=== PATIENT | male | born 1960 | race Caucasian/White ===

== ENCOUNTER 2023-10-09 10:51 | Outpatient (AMB) | payer BC, SELFPAY ==
--- NOTE | 2023-10-09 10:52 | MHC.OFFVIS ---
Vital Signs 10/09/23 10:54 Height 5 ft 9 in Weight 225 lb BMI 33.2 BP 136/80 Blood Pressure Location Lt brachial Position Sitting Respiration 14 Pulse 88 Pulse Source Pulse Oximeter Pulse Oximetry (%) 96 Oxygen Delivery Method Room Air Intake Visit Reasons: Lower back pain - want to discuss trigger point Allergies No Known Allergies Allergy (Verified 10/09/23 10:56) Medication List - Last Reconciled 10/09/23 by Patria Guevara LPN allopurinol 100 mg PO DAILY amlodipine 10 mg PO DAILY cholecalciferol (vitamin D3) 25 mcg PO DAILY diclofenac sodium 75 mg PO BID empagliflozin (Jardiance) 10 mg PO DAILY fexofenadine 180 mg PO DAILY losartan 100 mg PO DAILY metformin 1,000 mg PO BID rosuvastatin 10 mg PO BEDTIME tramadol 50 mg PO Q6H PRN HPI HPI Lower back pain - want to discuss trigger point: Details: 63-year-old male who presents today to the office for a TPI for low back pain He reports muscle spasms along the right lower back and left buttocks area going down to left leg since August 15, 2023. The pain is rated at 5-8/10 in intensity. It is constant in nature and associated with some tingling and stinging sensations. She reports intermittent right leg radiculopathy with prolonged sitting. He had massage therapy in [place], which did not provide any relief. He is unable to sleep at night due to pain. He was in [facility], when this occurred. He had an x-ray, which showed degenerative arthritis. He was treated with trigger point injection with steroid and lidocaine and oral medications, including tizanidine, diclofenac, and tramadol. He is taking Tylenol as needed and tramadol as needed. He will start physical therapy in late October. He requested a refill on diclofenac and tramadol. Review of Systems Const All systems reviewed & are unremarkable except as noted in HPI and below Physical Exam Vital Signs: Last Vital Signs Pulse 88 10/09/23 10:54 Resp 14 10/09/23 10:54 BP 136/80 10/09/23 10:54 Pulse Ox 96 10/09/23 10:54 Oxygen Delivery Method Room Air 10/09/23 10:54 BMI result Body Mass Index 33.2 General: Appears afebrile. Alert and oriented. Mood and affect appropriate. Follows and participates in conversation appropriately. Respiratory effort is unlabored. Able to transition from sit to stand unassisted. Ambulates with bilaterally normal heel strike and toe off. Results Reviewed Results Reviewed: Review of plain films shows degeneration of the L5-S1 intervertebral disc. Assessment & Plan Assessment & Plan (1) Lumbar radiculopathy: Code(s): M54.16 - Radiculopathy, lumbar region Category: Medical Plan He is already scheduled for physical therapy. I advised him to follow up in 4-6 weeks. I advised him to continue home exercises. I recommended swimming, inversion table exercises, core strengthening, and planks to lift the weight off the spine. I ordered an MRI scan of the lumbar spine for further evaluation of his L5-S1 disc degeneration and lumbar radiculopathy. I provided a one-time refill for Tramadol for interval pain management. Scribed for Dr. Trimble by John Knight, medical lab tech instructor, on 10/09/2023. I, Dr. Trimble, have personally reviewed and agree with the information entered by the scribe. Medications: New tramadol 50 mg PO DAILY 30 tabs 0RF Coding Level of Care Code New Pt Level 4 (50502) Diagnoses Lumbar radiculopathy M54.16
[2023-10-09 10:54] VITALS: BP 136/80; PULSE 88; RESP 14; O2SAT 96; BMI 33.2
== END 2023-10-09 11:52 | disposition home or self-care (01) ==
LOC: HO.PMC 10:51
PROVIDERS: PCP Physician Assistant; Visit Provider Internal Medicine
DX: M54.16 Radiculopathy, lumbar region (principal)
CPT/HCPCS: 99204

== ENCOUNTER → 2023-10-09 10:51 | Outpatient (BNVA) | payer BC, SELFPAY | PROVIDERS: PCP Physician Assistant; Visit Provider Internal Medicine ==

== ENCOUNTER 2023-11-13 11:15 | Outpatient (AMB) | payer BC, SELFPAY ==
[2023-11-13 11:20] VITALS: BP 150/98; PULSE 89; RESP 14; O2SAT 96; BMI 33.2
--- NOTE | 2023-11-13 11:20 | A.OFFVIS_ITS ---
Vital Signs 11/13/23 11:20 Height 5 ft 9 in Weight 225 lb BMI 33.2 BP 150/98 H Blood Pressure Location Lt brachial Position Supine Respiration 14 Pulse 89 Pulse Source Pulse Oximeter Pulse Oximetry (%) 96 Oxygen Delivery Method Room Air Intake Visit Reasons: PINCHED NERVE Allergies No Known Allergies Allergy (Verified 11/13/23 11:21) Medication List - Last Reconciled 11/13/23 by Patria Guevara LPN allopurinol 100 mg PO DAILY amlodipine 10 mg PO DAILY cholecalciferol (vitamin D3) 25 mcg PO DAILY diclofenac sodium 75 mg PO BID empagliflozin (Jardiance) 10 mg PO DAILY fexofenadine 180 mg PO DAILY losartan 100 mg PO DAILY metformin 1,000 mg PO BID rosuvastatin 10 mg PO BEDTIME tramadol 50 mg PO DAILY tramadol 50 mg PO Q6H PRN HPI HPI PINCHED NERVE: Details: 63-year-old male who presents today to the office for a pinched nerve. He visited for physical therapy and did some exercises and stretching, which worsened his pain during the initial sessions. He had an MRI scan on 10/12/2023. The pain is localized more on the right side. He states that his pain starts aggravating after 90 seconds of standing. He also reports pins and needle se nsations in his right leg. He states that his pain symptom has improved for the past three days. He is able to take a shower this morning without pain. He received a prescription of gabapentin from a primary care physician for pain management. He is also taking diclofenac. Review of Systems Const All systems reviewed & are unremarkable except as noted in HPI and below Physical Exam Vital Signs: Last Vital Signs Pulse 89 11/13/23 11:20 Resp 14 11/13/23 11:20 BP 150/98 H 11/13/23 11:20 Pulse Ox 96 11/13/23 11:20 Oxygen Delivery Method Room Air 11/13/23 11:20 BMI result Body Mass Index 33.2 General: Appears afebrile. Alert and oriented. Mood and affect appropriate. Follows and participates in conversation appropriately. Respiratory effort is unlabored. Able to transition from sit to stand unassisted. Ambulates with bilaterally normal heel strike and toe off. Results Reviewed Results Reviewed: PROCEDURE: MR SPINE LUMBAR without CONTRAST INDICATION: Right low back pain, right buttock and RLE pain since 08/16/23. TECHNIQUE: Unenhanced multiplanar, multisequence MR imaging of the lumbar spine. COMPARISON: None available. FINDINGS: Normal lumbar alignment is demonstrated. Vertebral heights are well maintained. Bone marrow signal is within normal limits, and no suspicious osseous lesion is identified. Conus medullaris is unremarkable. Paraspinal soft tissues and visualized portions of the abdomen and pelvis are unremarkable. At L1-2 there is no significant disc herniation or protrusion. No central canal or neural foraminal stenosis is demonstrated. At L2-3 there is no significant disc herniation or protrusion. No central canal or neural foraminal stenosis is demonstrated. At L3-4 there is no significant disc herniation or protrusion. No central canal or neural foraminal stenosis is demonstrated. At L4-5 concentric disc bulge with poco-bq-izzxqqwx canal narrowing, and moderate bilateral foraminal narrowing, greater on the left. There is facet arthropathy with fluid in the facet joints. At L5-S1 concentric disc bulge with mybk-le-jbarjtrc canal narrowing with at least moderate bilateral foraminal narrowing. IMPRESSION: 1. Transitional anatomy with a complete disc beneath the first sacral vertebrae. Comparison with plain film studies is suggested, to verify lumbar levels, prior to any intervention. There is wsyz-kh-adjhodcg multilevel degenerative disc disease with loss of disc height and disc desiccation seen diffusely throughout the lumbar spine. 2. Vertebral heights are preserved. No ariane malalignments. 3. No high-grade or limiting canal stenosis or disc herniation. 4. At L4-5 concentric disc bulge and broad-based central disc protrusion with aias-gt-vutnvqjj canal narrowing, and moderate bilateral foraminal narrowing, greater on the left. There is facet arthropathy with fluid in the facet joints. 5. At L5-S1 concentric disc bulge with wyao-qp-jxkfwpuc canal narrowing with at least moderate bilateral foraminal narrowing. 6. At remaining levels, canal and foraminal narrowing are mild/mpai-vn-xpgzcvkh. 7. No STIR signal abnormality to suggest bone marrow edema, soft tissue or ligamentous injury. Assessment & Plan Assessment & Plan (1) Lumbar radiculopathy: Code(s): M54.16 - Radiculopathy, lumbar region Category: Medical Plan We will schedule him for right L4-5 interlaminar epidural steroid injection on 11/16/23. Discussed the risks and benefits of the procedure with the patient in detail. All questions were answered. The patient is on board with the plan. Justification for interventional therapy: ? Patient with average pain > 6/10 ? Patient has exhausted conservative therapy ? Patient unable to tolerate physical therapy due to pain . Patient has a good understanding of their pain condition and has appropriate mental and social support Patient is status post IM ketorolac injection in the right gluteus gwen. Patient tolerated procedure well and was discharged home in stable condition with discharge instructions.? All questions were answered. Advised some gentle stretching and weightless exercises at home. Continue to take gabapentin 300 mg at bedtime and tramadol P.R.N for pain management. Advised to hold balcofen medication. Scribed for Dr. Trimble by John Knight, medical equipment technician, on 11/13/2023. I, Dr. Trimble, have personally reviewed and agree with the information entered by the scribe. Medications: New ketorolac maximum total duration of 5 days from all oral, intranasal, or parenteral formulations 30 mg IM Q6-8H PRN 2 mL 0RF pain Coding Level of Care Code Est Pt Level 4 (54132) Diagnoses Lumbar radiculopathy M54.16
== END 2023-11-13 12:47 | disposition home or self-care (01) ==
LOC: HO.PMC 11:15
PROVIDERS: PCP Physician Assistant; Visit Provider Internal Medicine
DX: M54.16 Radiculopathy, lumbar region (principal)
CPT/HCPCS: 99214

== ENCOUNTER → 2023-11-13 11:15 | Outpatient (BNVA) | payer BC, SELFPAY | PROVIDERS: PCP Physician Assistant; Visit Provider Internal Medicine ==

== ENCOUNTER 2023-11-16 06:08 | Outpatient (REF) | payer BC, SELFPAY ==
--- NOTE | ~2023-11-16 | FL_ITS ---
EXAMINATION: XR FLUOROSCOPY WITH IMAGES CLINICAL INFORMATION: Lumbar epidural injection; lumbar radiculopathy. COMPARISON: None available. TECHNIQUE: Fluoroscopy provided to: Fluoroscopy time: 0.3 minutes DAP: 0.0481 mGycm2 Images: 2 FINDINGS: Coned-down spot PA and lateral lumbar images demonstrate right translaminar epidural injection of a lumbar level; level not apparent on these coned images. Subsequent contrast injection into the dorsal epidural space. FL/FL guidance in treatment room IMPRESSION: Fluoroscopic guidance. Please refer to the full operative report for details. Electronically signed by: Carlos Alberto Wood MD 01/11/2024 09:58 AM EDT
== END 2023-11-16 06:09 | disposition home or self-care (01) ==
LOC: CF 06:08
PROVIDERS: Visit Provider Internal Medicine
DX: M54.16 Radiculopathy, lumbar region (principal)
CPT/HCPCS: 62323; J3301; Q9967

== ENCOUNTER 2023-11-16 10:18 | Outpatient (AMB) | payer BC, SELFPAY ==
[2023-11-16 10:20] VITALS: BP 158/85; PULSE 74; RESP 18; O2SAT 96
[2023-11-16 11:00] VITALS: BP 111/69; PULSE 64; RESP 19; O2SAT 96
--- NOTE | 2023-11-16 11:01 | MHC.OFFVIS ---
Vital Signs 11/16/23 10:20 11/16/23 11:00 BP 158/85 H 111/69 Blood Pressure Location Rt brachial Rt brachial Position Sitting Sitting Respiration 18 19 Pulse 74 64 Pulse Source Pulse Oximeter Pulse Oximeter Pulse Oximetry (%) 96 96 Oxygen Delivery Method Room Air Room Air Comment Pre-op Post-op Intake Visit Reasons: Right L4-L5 parasagittal interlaminar JOSE Allergies No Known Allergies Allergy (Verified 11/13/23 11:21) HPI HPI Right L4-L5 parasagittal interlaminar JOSE: Details: Patient presents for scheduled procedure. Denies any recent cough, cold, infection, fever or other significant changes in medical history since last office visit. Physical Exam Vital Signs: Last Vital Signs Pulse 64 11/16/23 11:00 Resp 19 11/16/23 11:00 BP 111/69 11/16/23 11:00 Pulse Ox 96 11/16/23 11:00 Oxygen Delivery Method Room Air 11/16/23 11:00 Office Procedures Joint Injection/Aspiration Joint Injection/Aspiration Details: Interlaminar epidural steroid injection, L4/5, Right parasaggital After obtaining written consent, pre-procedure blood pressure and heart rate were stable and recorded in the nursing record. The patient was placed in the prone position. The [anatomic] area was widely prepped with chloraprep and draped in sterile fashion. Fluoroscopic guidance was used to identify the desired interlaminar space and for needle placement. Subcutaneous 0.5% lidocaine was used to anesthetize the skin overlying the target. A 20-gauge Pedraza needle was advanced to the epidural space using loss of resistance to contrast technique under fluoroscopic AP and contralateral oblique views. There was no evidence of heme or CSF and no paresthesias were elicited with needle placement. Confirmation of epidural needle placement was performed with 1cc of omnipaque 180. Next 3 ml 0.5% lidocaine mixed with 80 mg triamcinilone was administered epidurally with no pain elicited on injection. The needle tract tubing was then cleared with 1 ml of 0.5% lidocaine. The needle was removed, skin cleansed and a sterile bandage was applied. The patient tolerated the procedure well and no complications were encountered. Following the procedure the patient's vital signs were stable. The patient was discharged home in good condition with post-procedural instructions. Time Out: Immediately prior to the procedure, the following was verbally confirmed that there is a signed consent form and that the correct patient, planned procedure, site and side are consistent with documentation and that necessary equipment and/or blood products are available prior to the start of the case. Complications: none EBL: <2 cc Coding 95788 - Caudal/Lumbar Epidural/Interlaminar with fluoroscopy Procedure code (CPT) selection complete Assessment & Plan Assessment & Plan (1) Lumbar radiculopathy: Code(s): M54.16 - Radiculopathy, lumbar region Category: Medical Plan Patient is status post right parasagittal L4-5 interlaminar JOSE. Patient tolerated procedure well and was discharged home in stable condition with discharge instructions. All questions were answered. We will follow-up via telephone or in clinic to assess response to therapy. A follow-up appointment was made during today's visit. Orders: Orders FL guidance in treatment room Today M54.16 - Radiculopathy, lumbar region Coding Level of Care Code Procedure Only Diagnoses Lumbar radiculopathy M54.16 CPT Codes Coding - Joint 11: 87496 - Caudal/Lumbar Epidural/Interlaminar with fluoroscopy ([id number])
== END 2023-11-16 10:57 | disposition home or self-care (01) ==
LOC: HO.PMCPRC 10:18
PROVIDERS: PCP Physician Assistant; Visit Provider Internal Medicine
DX: M54.16 Radiculopathy, lumbar region (principal)
CPT/HCPCS: 62323

== ENCOUNTER 2023-12-11 09:34 | Outpatient (AMB) | payer BC, SELFPAY ==
--- NOTE | 2023-12-11 09:44 | A.OFFVIS_ITS ---
Vital Signs 12/11/23 09:46 Height 5 ft 9 in Weight 213 lb BMI 31.5 BP 138/86 Blood Pressure Location Lt brachial Position Sitting Respiration 16 Pulse 75 Pulse Source Pulse Oximeter Pulse Oximetry (%) 95 Oxygen Delivery Method Room Air Intake Visit Reasons: s/p Right L4-L5 interlaminar JOSE Allergies No Known Allergies Allergy (Verified 12/11/23 09:47) Medication List - Last Reconciled 12/11/23 by Patria Guevara LPN allopurinol 100 mg PO DAILY amlodipine 10 mg PO DAILY cholecalciferol (vitamin D3) 25 mcg PO DAILY diclofenac sodium 75 mg PO BID empagliflozin (Jardiance) 10 mg PO DAILY fexofenadine 180 mg PO DAILY ketorolac 30 mg IM Q6-8H PRN losartan 100 mg PO DAILY metformin 1,000 mg PO BID rosuvastatin 10 mg PO BEDTIME tramadol 50 mg PO DAILY tramadol 50 mg PO Q6H PRN HPI HPI s/p Right L4-L5 interlaminar JOSE: Details: 63-year-old male who presents today to the office for a status post right L4-L5 interlaminar epidural steroid injection. The patient reports 80% relief following the procedure. He has significant resolution of the pain since injection. He experiences numbness and pain with prolonged sitting at work. He has not taken acetaminophen this morning. He states that lying down on bed or floor alleviates the pain. He has been taking diclofenac BID and acetaminophen Q4H. Past procedures 11/16/23: Interlaminar epidural steroid injection, L4/5, Right parasaggital: 80% relief. Review of Systems Const All systems reviewed & are unremarkable except as noted in HPI and below Physical Exam Vital Signs: Last Vital Signs Pulse 75 12/11/23 09:46 Resp 16 12/11/23 09:46 BP 138/86 12/11/23 09:46 Pulse Ox 95 12/11/23 09:46 Oxygen Delivery Method Room Air 12/11/23 09:46 BMI result Body Mass Index 31.5 General: Appears afebrile. Alert and oriented. Mood and affect appropriate. Follows and participates in conversation appropriately. Respiratory effort is unlabored. Able to transition from sit to stand unassisted. Ambulates with bilaterally normal heel strike and toe off. Results Reviewed Results Reviewed: No imaging is available for review. Assessment & Plan Assessment & Plan (1) Lumbar radiculopathy: Code(s): M54.16 - Radiculopathy, lumbar region Category: Medical Plan I recommended trying a combination of physical therapy/home exercises, including strengthening and extension exercises, swimming, and injections for good relief. I advised him to continue physical therapy exercises at home. Advised him to wean down on diclofenac. If his pain returns or flares up again, we can repeat the injection for continued relief. Scribed for Dr. Trimble by John Knight, biomedical electronics technician, on 12/11/2023. I, Dr. Trimble, have personally reviewed and agree with the information entered by the scribe. Coding Level of Care Code Est Pt Level 3 (43608) Diagnoses Lumbar radiculopathy M54.16
[2023-12-11 09:46] VITALS: BP 138/86; PULSE 75; RESP 16; O2SAT 95; BMI 31.5
== END 2023-12-11 10:22 | disposition home or self-care (01) ==
PROVIDERS: PCP Physician Assistant; Visit Provider Internal Medicine
DX: M54.16 Radiculopathy, lumbar region (principal)
CPT/HCPCS: 99213

== ENCOUNTER → 2023-12-11 09:34 | Outpatient (BNVA) | payer BC, SELFPAY | PROVIDERS: PCP Physician Assistant; Visit Provider Internal Medicine ==

== ENCOUNTER 2024-02-14 10:18 | Outpatient (AMB) | payer BC, SELFPAY ==
[2024-02-14 10:30] VITALS: BP 142/83; PULSE 73; RESP 15; O2SAT 97; BMI 26.6
--- NOTE | 2024-02-14 10:30 | A.OFFVIS_ITS ---
Vital Signs 02/14/24 10:30 Height 5 ft 9 in Weight 180 lb BMI 26.6 BP 142/83 H Blood Pressure Location Lt brachial Position Sitting Respiration 15 Pulse 73 Pulse Source Pulse Oximeter Pulse Oximetry (%) 97 Oxygen Delivery Method Room Air Intake Visit Reasons: Lower Back Pain Allergies No Known Allergies Allergy (Verified 02/14/24 10:31) Medication List - Last Reconciled 02/14/24 by Patria Guevara LPN allopurinol 100 mg PO DAILY amlodipine 10 mg PO DAILY cholecalciferol (vitamin D3) 25 mcg PO DAILY diclofenac sodium 75 mg PO BID empagliflozin (Jardiance) 10 mg PO DAILY fexofenadine 180 mg PO DAILY ketorolac 30 mg IM Q6-8H PRN losartan 100 mg PO DAILY metformin 1,000 mg PO BID rosuvastatin 10 mg PO BEDTIME tramadol 50 mg PO DAILY tramadol 50 mg PO Q6H PRN HPI HPI Lower Back Pain: Details: 63-year-old male who presents today to the office for a lower back pain. He reports worsening of the pain on the left hip and lower back region. The pain does not radiate down to his leg. His pain is worse in the morning. He has been taking one tablet of acetaminophen in the morning for pain relief. He is a side sleeper. He deferred a referral to physical therapy. Past procedures 11/16/23: Interlaminar epidural steroid injection, L4/5, Right parasaggital: 80% relief. Review of Systems Const All systems reviewed & are unremarkable except as noted in HPI and below Physical Exam Vital Signs: Last Vital Signs Pulse 73 02/14/24 10:30 Resp 15 02/14/24 10:30 BP 142/83 H 02/14/24 10:30 Pulse Ox 97 02/14/24 10:30 Oxygen Delivery Method Room Air 02/14/24 10:30 BMI result Body Mass Index 26.6 General: Appears afebrile. Alert and oriented. Mood and affect appropriate. Follows and participates in conversation appropriately. Respiratory effort is unlabored. Able to transition from sit to stand unassisted. Ambulates with bilaterally normal heel strike and toe off. The pain is localized over the left sacroiliac joint area. Results Reviewed Results Reviewed: 10/12/23: MR SPINE LUMBAR without CONTRAST FINDINGS: Normal lumbar alignment is demonstrated. Vertebral heights are well maintained. Bone marrow signal is within normal limits, and no suspicious osseous lesion is identified. Conus medullaris is unremarkable. Paraspinal soft tissues and visualized portions of the abdomen and pelvis are unremarkable. At L1-2 there is no significant disc herniation or protrusion. No central canal or neural foraminal stenosis is demonstrated. At L2-3 there is no significant disc herniation or protrusion. No central canal or neural foraminal stenosis is demonstrated. At L3-4 there is no significant disc herniation or protrusion. No central canal or neural foraminal stenosis is demonstrated. At L4-5 concentric disc bulge with dxfc-ib-uqclcush canal narrowing, and moderate bilateral foraminal narrowing, greater on the left. There is facet arthropathy with fluid in the facet joints. At L5-S1 concentric disc bulge with oggi-ug-ijnyjldf canal narrowing with at least moderate bilateral foraminal narrowing. IMPRESSION: 1. Transitional anatomy with a complete disc beneath the first sacral vertebrae. Comparison with plain film studies is suggested, to verify lumbar levels, prior to any intervention. There is fvvr-uo-tlwztpsj multilevel degenerative disc disease with loss of disc height and disc desiccation seen diffusely throughout the lumbar spine. 2. Vertebral heights are preserved. No ariane malalignments. 3. No high-grade or limiting canal stenosis or disc herniation. 4. At L4-5 concentric disc bulge and broad-based central disc protrusion with teum-uf-fmpnhmit canal narrowing, and moderate bilateral foraminal narrowing, greater on the left. There is facet arthropathy with fluid in the facet joints. 5. At L5-S1 concentric disc bulge with jczr-lf-phnmhlbp canal narrowing with at least moderate bilateral foraminal narrowing. 6. At remaining levels, canal and foraminal narrowing are mild/rlzh-vo-minwraaq. 7. No STIR signal abnormality to suggest bone marrow edema, soft tissue or ligamentous injury. Assessment & Plan Assessment & Plan (1) Lumbar radiculopathy: Code(s): M54.16 - Radiculopathy, lumbar region Category: Medical Plan I counseled the patient regarding both lumbar spondylosis and sacroiliac joint dysfunction as potential causes of his left lower back pain. We went over conservative measures, including stretching, strengthening, and postural modifications to help with these issues. We will continue these conservative measures at home for the next few months, allowing his symptoms to improve. If his symptoms do not improve, he will follow up as needed. His right-sided sciatica is doing well. Once again, I reviewed his MRI with him and educated him about his condition. Patient is in agreement with the plan. Scribed for Dr. Trimble by John Knight, medical case manager, on 02/14/2024. I, Dr. Trimble, have personally reviewed and agree with the information entered by the scribe. Coding Level of Care Code Est Pt Level 3 (09394) Diagnoses Lumbar radiculopathy M54.16
== END 2024-02-14 10:55 | disposition home or self-care (01) ==
LOC: HO.PMC 10:19
PROVIDERS: PCP Physician Assistant; Visit Provider Internal Medicine
DX: M54.16 Radiculopathy, lumbar region (principal)
CPT/HCPCS: 99213

== ENCOUNTER → 2024-02-14 10:18 | Outpatient (BNVA) | payer BC, SELFPAY | PROVIDERS: PCP Physician Assistant; Visit Provider Internal Medicine ==